=== PATIENT | male | born 1965 | race African-American/Black ===

== ENCOUNTER 2018-11-03 09:20 | Emergency (ER) | payer OTHER ==
[2018-11-03] MEDS ORDERED: 0.9 % SODIUM CHLORIDE 1,000 ML IV ONE (09:51)
[2018-11-03] MEDS ORDERED: ONDANSETRON HCL/PF 4 MG/ 2ML VIAL IVP ONE (09:51)
[2018-11-03 10:31] LABS: eGFR (Non-African) > 60
[2018-11-03 10:33] LABS: MEAN CORPUSCULAR HEMOGLOBIN 30.1 pg (28.0-34.0)
[2018-11-03 10:34] LABS: BASOPHILS % 0.7 (0.0-1.5); EOSINOPHILS % 1.2 % (0.0-6.8); MONOCYTES % 10.8 % (0.0-11.0); NEUTROPHILS # 4.1 # k/uL (1.4-7.7)
--- NOTE | 2018-11-03 11:27 | ED Physician Documentation ---
Nausea/Vomiting/Diarrhea - HISTORIAN Historian: patient - HPI Stated Complaint: N/V/D Chief Complaint: Nausea,Vomiting,Diarrhea Additional Information: Patient is a 53 year old male that presents to the ER ambulatory with c/o nause a, vomiting, and diarrhea. Patient states that he experienced projectile vomiting around 4 a.m yesterday morning with diarrhea. He states that he had dry heaves and diarrhea that continued off/on yesterday. He thought that he was getting better but he was still having a nausea today and a little diarrhea- he states that he did have some formed stool yesterday. 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 Onset: days ago (Yesterday around 4 a.m.) Duration: sudden-onset Timing: still present, better Context: bad food (had [place]ian food). denies: out of country travel Severity: mild Further Comments: no - Associated Symptoms Vomiting: mild Diarrhea: mild Abdominal Pain: mild (pain improved), diffuse (from vomiting and diarrhea- improved) - ROS CONST: denies: fever CVS/RESP: denies: shortness of breath GI/: none EYES/ENT: none MS/SKIN/LYMPH: denies: joint pain NEURO/PSYCH: none - PAST HX Past History: other Other History: hypertension Surgeries/Procedures: none Immunizations: UTD Allergies/Adverse Reactions: Allergies Allergy/AdvReac Type Severity Reaction Status Date / Time No Known Allergies Allergy Verified 11/03/18 09:49 Home Medications: Ambulatory Orders Medication Instructions Recorded Hydrochlorothiazide 25 mg PO D 11/03/18 Ondansetron HCl Rapdis [Zofran Odt] 4 mg PO Q8 PRN #10 tab 11/03/18 amLODIPine BESYLATE [Norvasc] 10 mg PO 0900 11/03/18 - SOCIAL HX Smoking History: non-smoker Alcohol Use: rarely Drug Use: none - FAMILY HX Family History: none - VITAL SIGNS Vital Signs: Vital Signs Temp Pulse Resp BP Pulse Ox 98.2 F 88 18 132/81 96 11/03/18 11:56 11/03/18 11:56 11/03/18 11:56 11/03/18 11:56 11/03/18 11:56 - REVIEWED ASSESSMENTS Nursing Assessment Reviewed: Yes Vitals Reviewed: Yes Progress - Progress Progress: Patient felt much better after IV fluids and IV zofran- states that nausea is much better- no more vomiting or diarrhea ED Results Lab/Radiology - Lab Results Lab Results: Lab Results 11/03/18 11/03/18 11/03/18 Unknown Unknown Unknown WBC 6.10 K/ul K/ul (4.00-12.00) RBC 5.02 M/ul M/ul (3.90-5.20) Hgb 15.1 g/dL g/dL (12.0-18.0) Hct 45.5 % % (37.0-53.0) MCV 91.0 fl fl (80.0-100.0) MCH 30.1 pg pg (28.0-34.0) MCHC 33.2 g/dL g/dL (30.0-36.0) RDW 12.6 % % (11.3-14.3) Plt Count 328 K/mm3 K/mm3 (130-400) Neut % (Auto) 66.6 % % (39.0-79.0) Lymph % (Auto) 20.7 % % (16.0-50.0) [place] % (Auto) 10.8 % % (0.0-11.0) Eos % (Auto) 1.2 % % (0.0-6.8) Baso % (Auto) 0.7 (0.0-1.5) Neut # (Auto) 4.1 # k/uL # k/uL (1.4-7.7) Lymph # (Auto) 1.3 # k/uL # k/uL (0.6-4.0) [place] # (Auto) 0.7 # k/uL # k/uL (0.0-0.9) Eos # (Auto) 0.1 # k/uL # k/uL (0.0-0.6) Baso # (Auto) 0.0 # k/uL # k/uL (0.0-0.5) Sodium 137 mmol/L mmol/L (136-145) Potassium 3.6 mmol/L mmol/L (3.5-5.1) Chloride 102 mmol/L mmol/L (98-107) Carbon Dioxide 26 mmol/L mmol/L (22-30) BUN 17 mg/dL mg/dL (9-20) Creatinine 1.15 mg/dL mg/dL (0.66-1.25) Estimated Creat Clear 190 Est GFR ( Amer) > 60 (60 - ) Est GFR (Non-Af Amer) > 60 (60 - ) Glucose 109 mg/dL H mg/dL (74-106) Calcium 8.4 mg/dL mg/dL (8.4-10.2) Total Bilirubin 1.0 mg/dL mg/dL (0.2-1.3) AST 53 U/L H U/L (15-46) ALT 56 U/L U/L (13-69) Alkaline Phosphatase 43 U/L U/L (38-126) Total Protein 8.4 g/dL H g/dL (6.3-8.2) Albumin 4.5 g/dL g/dL (3.5-5.0) Lipase 40 U/L U/L (23-300) - Orders Orders: ED Orders Category Date Time Status Place IV Lock 1T Care 11/03/18 09:51 Active CBC/PLATELET/DIFF Routine Lab 11/03/18 Completed CMP Routine Lab 11/03/18 Completed LIPASE Stat Lab 11/03/18 Completed 0.9 % Sodium Chloride [Normal Saline] 1,000 ml Med 11/03/18 09:51 Discontinued IV Q1H Ondansetron HCl/Pf [Zofran] Med 11/03/18 09:51 Discontinued 4 mg IVP NOW ONE Nausea Physical Exam - EXAM General Appearance: no acute distress, alert EENT: eye inspection normal, ENT inspection normal, pharynx normal, BERTHA Neck: normal inspection Respiratory: no resp distress, breath sounds normal CVS: reg rate & rhythm, heart sounds normal, equal pulses Abdomen: non-tender Back: non-tender Skin: warm/dry, normal color Extremities: normal range of motion Neuro/Psych: oriented X3, motor nml, sensation nml, mood/affect nml, cognition normal Discharge Clincal Impression: Nausea vomiting and diarrhea, Dehydration Prescriptions: Ondansetron HCl Rapdis [Zofran Odt] 4 mg PO Q8 PRN #10 tab PRN Reason: Nausea and Vomiting Referrals: Blu Kelly [Primary Care Provider] - 2 Days Additional Instructions: Try to increase fluids (no caffeine or sugary drinks) Start with a bland diet and advance as tolerated Return to ER if symptoms worsen Condition: Good Disposition: 01 HOME, SELF-CARE Decision to Admit: NO Decision Time: 11:55
[2018-11-03 12:00] VITALS: BP 132/81
== END 2018-11-03 11:56 | disposition home or self-care (01) ==
LOC: ED 09:20
DX: R11.2 Nausea with vomiting, unspecified (principal); R19.7 Diarrhea, unspecified; E86.0 Dehydration
CPT/HCPCS: 36415; 80053; 83690; 85025; 96360; 96374; 99283; 99284; J2405; J7030; S1016